=== PATIENT | female | born 1960 | race African-American/Black ===

== ENCOUNTER 2016-11-30 12:49 | Emergency (ER) | payer OTHER ==
[~2016-11-30] VITALS: Ht 167.6 cm; Wt 123.0 kg
[~2016-11-30 12:49] MED LIST: PREDNISONE
[2016-11-30] MEDS ORDERED: PREDNISONE 20MG TABLET PO ONE (18:30)
[2016-11-30] MEDS ORDERED: HYDROCODONE/ACETAMINOPHEN 10/325MG TABLET PO ONE (18:30)
[2016-11-30 19:58] VITALS: BP 124/78
== END 2016-11-30 20:00 | disposition home or self-care (01) ==
LOC: ER 12:49
DX: M06.832 Other specified rheumatoid arthritis, left wrist (principal); M06.831 Other specified rheumatoid arthritis, right wrist; F17.200 Nicotine dependence, unspecified, uncomplicated; Z88.0 Allergy status to penicillin
CPT/HCPCS: 99283; J7512; Z7610

== ENCOUNTER 2017-02-19 11:46 | Emergency (ER) | payer OTHER ==
[~2017-02-19] VITALS: Ht 167.6 cm; Wt 124.0 kg
[2017-02-19] MEDS ORDERED: KETOROLAC 60MG/2ML VIAL IM ONE (14:45)
[2017-02-19] MEDS ORDERED: MORPHINE SULFATE 10 MG/ML CPJ IM ONE (14:45)
[2017-02-19] MEDS ORDERED: LORATADINE 10MG TABLET PO ONE (14:45)
[2017-02-19] MEDS ORDERED: ONDANSETRON 4MG ODT PO ONE (14:45)
[2017-02-19] MEDS ORDERED: FAMOTIDINE 20MG TABLET PO ONE (14:45)
[2017-02-19] MEDS ORDERED: DIPHENHYDRAMINE 25MG CAPSULE PO ONE (14:45)
[2017-02-19 17:00] VITALS: BP 121/83
== END 2017-02-19 17:20 | disposition home or self-care (01) ==
LOC: ER 13:46
DX: M06.9 Rheumatoid arthritis, unspecified (principal); G89.29 Other chronic pain; F17.200 Nicotine dependence, unspecified, uncomplicated; Z88.0 Allergy status to penicillin
CPT/HCPCS: 96372; 99284; J1885; J2270; Q0162; Z7610